=== PATIENT | female | born 1980 | race African-American/Black ===

== ENCOUNTER 2018-01-02 19:23 | Emergency (ER) | payer SELFPAY ==
[~2018-01-02] VITALS: Ht 162.6 cm; Wt 68.2 kg
[2018-01-02 19:29] VITALS: BP 123/69; PULSE 81; RESP 22; TEMP 98.8; O2SAT 98
[2018-01-02] MEDS ORDERED: BENZONATATE 100 MG CAP PO ONE (20:45)
--- NOTE | 2018-01-02 20:45 | PD ---
HPI Chief Complaint: Cold / Flu Symptoms Time Seen by Provider: 20:38 Travel History International Travel<30 days: No Contact w/Intl Traveler<30days: No Traveled to known affect area: No History of Present Illness HPI 37-year-old female with no significant past medical history presents for evaluation. For 4 days she has had cough, congestion. Cough is productive of clear and yellow sputum. She reports that she had a fever yesterday of 101. Denies sore throat, ear pain, nausea or vomiting, abdominal pain, flank pain, rash. She reports that she is on vacation from [place]. Denies any sick contacts. She is not currently using any medication [id number] for symptom relief. She has no other complaints at this time. [facility] Past Medical History ?: Not LMP: 3 weeks ago Social History Alcohol Use: No Tobacco Use: No Allergies-Medications (Allergen,Severity, Reaction): Coded Allergies: Sulfa (Sulfonamide Antibiotics) (Verified Allergy, Unknown, 01/02/18) acetaminophen (Verified Allergy, Unknown, 01/02/18) hydrocodone (Verified Allergy, Unknown, 01/02/18) Reported Meds & Prescriptions Reported Meds & Active Scripts Active Tessalon Perles (Benzonatate) 100 Mg Cap 100 Mg PO TID PRN Prednisone 20 Mg Tab 20 Mg PO BID 5 Days Proair Hfa 8.5 GM Inh (Albuterol Sulfate) 90 Mcg/Act Aer 2 Puff INH Q4-6H PRN 108 mcg/actuation Review of Systems Except as stated in HPI: all other systems reviewed are Neg Physical Exam Narrative GENERAL: Well-developed well-nourished female no acute distress SKIN: Warm and dry. HEAD: Atraumatic. Normocephalic. EYES: Pupils equal and round. No scleral icterus. No injection or drainage. ENT: No nasal bleeding or discharge. Mucous membranes pink and moist. Tympanic membranes appear normal without erythema or air-fluid level. No oral pharyngeal erythema or exudate. NECK: Trachea midline. No JVD. No lymphadenopathy. Neck supple full range of motion. CARDIOVASCULAR: Regular rate and rhythm. No murmur appreciated. RESPIRATORY: No accessory muscle use. Clear to auscultation. Breath sounds equal bilaterally. No crackles no wheezing no rhonchi Data Data Last Documented VS Vital Signs Date Time Temp Pulse Resp B/P (MAP) Pulse Ox O2 Delivery O2 Flow Rate FiO2 01/02/18 19:29 98.8 81 22 123/69 (87) 98 Orders Orders Influenzae A/B Antigen (01/02/18 19:31) Chest, Single Ap (01/02/18 ) Benzonatate (Tessalon) (01/02/18 20:45) MDM Medical Decision Making Medical Screen Exam Complete: Yes Emergency Medical Condition: Yes Medical Record Reviewed: Yes Differential Diagnosis Influenza, pneumonia, bronchitis, rhinitis, sinusitis Narrative Course 37-year-old female 4 days of cough, congestion. She appears well. An influenza antigen test was performed in triage and is negative. Chest x-ray was obtained revealing no acute normalities. She appears to have a viral upper respiratory infection. She does report that she had wheezing at home, none currently. She will be discharged with Tessalon, prednisone, albuterol inhaler. Diagnosis Primary Impression: Respiratory tract infection Additional Instructions: Medication as prescribed. Follow-up with primary care physician as needed. Return for any emergent medical conditions. Med/Other Pt SpecificInfo: Prescription(s) given Scripts Benzonatate (Tessalon Perles) 100 Mg Cap 100 MG PO TID Y for COUGH, #30 CAP 0 Refills Prov: Juan Sharma MD 01/02/18 Prednisone (Prednisone) 20 Mg Tab 20 MG PO BID for 5 Days, #10 TAB 0 Refills Prov: Juan Sharma MD 01/02/18 Albuterol 8.5 GM Inh (Proair Hfa 8.5 GM Inh) 90 Mcg/Act Aer 2 PUFF INH Q4-6H Y for SHORTNESS OF BREATH, #1 INHALER 0 Refills 108 mcg/actuation Prov: Juan Sharma MD 01/02/18 Disposition: 01 DISCHARGE HOME Condition: Stable Hari Soares Jan 02, 2018 20:45
--- NOTE | 2018-01-02 21:48 | RADRPT ---
EXAM DATE/TIME: 01/02/2018 20:49 [place] COMPARISON: No previous studies available for comparison. INDICATIONS : Fever and cough. MEDICAL HISTORY : None. SURGICAL HISTORY : None. ENCOUNTER: Initial ACUITY: 2 days PAIN SCORE: 0/10 LOCATION: Bilateral chest FINDINGS: A single view of the chest demonstrates the lungs to be symmetrically aerated without evidence of mas s, infiltrate or effusion. The cardiomediastinal contours are unremarkable. Osseous structures are intact. CONCLUSION: No acute disease. Mal Calvo MD on January 02, 2018 at 21:46 Board Certified Radiologist. This report was verified electronically.
[2018-01-02] MEDS ORDERED: ALBUAER3 INH (21:56)
[2018-01-02] MEDS ORDERED: BENZ100 PO (21:56)
[2018-01-02] MEDS ORDERED: PRED20 PO (21:56)
== END 2018-01-02 22:22 | disposition home or self-care (01) ==
LOC: NED 19:23 → NEPD 22:22
DX: J06.9 Acute upper respiratory infection, unspecified (principal)
CPT/HCPCS: 71045; 87804; 99284